=== PATIENT | female | born 1940 | race Caucasian/White ===

== ENCOUNTER → 2016-11-22 | Outpatient (CLI) | payer OTHER | END | disposition home or self-care (01) | DX: M25.552 Pain in left hip (principal); M25.652 Stiffness of left hip, not elsewhere classified; R26.2 Difficulty in walking, not elsewhere classified; M62.81 Muscle weakness (generalized) | CPT/HCPCS: 97110 GP; 97150 GO; 97161 GP; 97165 GO; G8978 GP; G8979 GP; G8980 GP; G8984 GO; G8985 GO; G8986 GO ==

== ENCOUNTER 2016-12-13 08:27 | Inpatient (IN) | payer OTHER ==
[~2016-12-13] VITALS: Ht 162.6 cm; Wt 81.5 kg
[~2016-12-13 08:27] MED LIST: ALEVE220 MG PO; ASPIRIN81 M2 PO; B-COMPLEX-VITA1 EACH PO; BIOTIN1 MG PO; CINNAMON500 MG PO; COQ-10100 MG PO; FERROUS SULFAT325 MG PO; GLUCOSAMINE1000 MG PO; LEVOXYL88 MCG PO; MAGNESIUM400 M1 PO; MULTIPLE VITAM1 EAC4 PO; NATURAL LUTEIN20 MG PO; OMEGA 3 500 SO1 EACH PO; POTASSIUM-9999 MG PO; RED YEAST RICE600 MG PO; SELENIUM200 MC3 PO; VITAMIN A A1 CAPSULE PO; VITAMIN C500 M1 PO; VITAMIN D-3 401 EACH PO; VITAMIN E400 UNIT PO; ZINC50 M1 PO
[2016-12-13 09:32] VITALS: BP 144/66
[2016-12-13 14:27] LABS: HEMATOCRIT 33.7 % (36.0-46.0); MCH 32.7 PG (29.0-34.0); MCHC 33.2 G/DL (30.0-36.0); MCV 98.5 FL (83-99); MEAN PLAT.VOLUME 11.2 uM^3 (9.5-12.4); PLATELET COUNT 183 K/uL (156-360); RBC DIS.WIDTH-CV 13.4 % (11.8-14.6); RBC DIS.WIDTH-SD 49.3 % (39-53); RED BLOOD COUNT 3.42 M/uL (3.80-5.20); WHITE BLOOD COUNT 11.6 K/uL (4.1-10.2)
[2016-12-13 16:36] VITALS: BP 190/92
[2016-12-13 21:41] VITALS: BP 176/74
[2016-12-14 00:46] VITALS: BP 161/67
[2016-12-14 03:41] VITALS: BP 154/70
[2016-12-14 06:48] LABS: ANION GAP 7 MEQ/L (2-14); CHLORIDE 102 MEQ/L (99-109); GFR ESTIMATE (CALCULATED) > 59 mL/min/; GLUCOSE 133 mg/dL (70-99); POTASSIUM 4.2 MEQ/L (3.7-5.4); SAMPLE HEMOLYSIS CHECK 0; SAMPLE ICTERIC CHECK 0; SAMPLE LIPEMIA CHECK 0; SODIUM 137 MEQ/L (136-147); UREA NITROGEN (BUN) 10 mg/dL (9-23)
[2016-12-14 07:49] VITALS: BP 136/63
[2016-12-14 14:06] LABS: HEMATOCRIT 32.5 % (36.0-46.0); MCV 98.8 FL (83-99)
[2016-12-14 15:42] VITALS: BP 117/58
[2016-12-15 00:06] VITALS: BP 126/58
[2016-12-15 08:01] VITALS: BP 119/58
[2016-12-15 16:08] VITALS: BP 108/55
[2016-12-16 00:05] VITALS: BP 137/65
[2016-12-16 07:04] VITALS: BP 115/55
[2016-12-16] MEDS ORDERED: SENNA PLUS TAB1 EACH PO (09:07)
[2016-12-16] MEDS ORDERED: HYDROCODON-ACE1 EAC7 PO (09:09)
[2016-12-16] MEDS ORDERED: LOVENOX40 MG/0.4 SC (09:09)
== END 2016-12-16 14:12 | DRG 470 ==
LOC: 2SOUTH 08:27 → 3EAST 08:27 → 2SOUTH 15:24 → 3EAST 12-16 14:12
PROVIDERS: Orthopaedic Surgery
PROC: 0SRB0J9 Replacement of Left Hip Joint with Synthetic Substitute, Cemented, Open Approach (ICD-10-PCS; principal; 2016-12-13)
DX: M16.12 Unilateral primary osteoarthritis, left hip (principal); I10 Essential (primary) hypertension; E07.9 Disorder of thyroid, unspecified; Z82.49 Family history of ischemic heart disease and other diseases of the circulatory system; Z88.1 Allergy status to other antibiotic agents; R91.8 Other nonspecific abnormal finding of lung field
CPT/HCPCS: 71010; 71020; 73501; 73502; 80048; 85014; 85018; 85027; 97530 GP; C1713; J0690; J1170; J1650; J2250; J2405; J7030; J7050

== ENCOUNTER → 2017-11-28 | Outpatient (CLI) | payer OTHER ==
[~2017-11-28] MED LIST changes: +HYDROCODON-ACE1 EAC7 PO; +LOVENOX40 MG/0.4 SC; +SENNA PLUS TAB1 EACH PO
== END | disposition home or self-care (01) ==
DX: Z01.818 Encounter for other preprocedural examination (principal); R26.2 Difficulty in walking, not elsewhere classified; R29.3 Abnormal posture; R26.9 Unspecified abnormalities of gait and mobility; M25.561 Pain in right knee; M79.604 Pain in right leg; M25.661 Stiffness of right knee, not elsewhere classified; Z74.1 Need for assistance with personal care; M17.11 Unilateral primary osteoarthritis, right knee
CPT/HCPCS: 97161 GP; 97165 GO; 97530 GP; 97535 GO; G8978 GP; G8979 GP; G8980 GP; G8984 GO; G8985 GO; G8986 GO

== ENCOUNTER 2017-12-24 21:53 | Inpatient (IN) | payer OTHER ==
[~2017-12-24] VITALS: Ht 162.6 cm; Wt 73.0 kg
[~2017-12-24 21:53] MED LIST changes: +ASPIR 8181 M1 PO; +LOTENSIN5 MG PO; +STOOL SOFTENER100 MG PO
[2017-12-25 11:24] VITALS: BP 127/68
[2017-12-25 16:03] LABS: HEMATOCRIT 35.1 % (36.0-46.0); HEMOGLOBIN 11.8 G/DL (11.9-15.5); MCH 32.4 PG (29.0-34.0); MCHC 33.6 G/DL (30.0-36.0); MCV 96.4 FL (83-99); PLATELET COUNT 268 K/uL (156-360); RBC DIS.WIDTH-CV 13.1 % (11.8-14.6); RBC DIS.WIDTH-SD 46.6 % (39-53); RED BLOOD COUNT 3.64 M/uL (3.80-5.20); WHITE BLOOD COUNT 6.7 K/uL (4.1-10.2)
[2017-12-25 19:16] VITALS: BP 134/61
[2017-12-26 03:57] VITALS: BP 181/70
[2017-12-26 05:40] VITALS: BP 176/76
[2017-12-26 05:52] LABS: HEMATOCRIT 34.1 % (36.0-46.0); HEMOGLOBIN 11.5 G/DL (11.9-15.5); MCV 96.3 FL (83-99)
[2017-12-26 06:15] LABS: CHLORIDE 102 MEQ/L (99-109); CREATININE 0.7 MG/DL (0.6-1.3); GFR ESTIMATE (CALCULATED) > 59 mL/min/; GLUCOSE 141 mg/dL (70-99); POTASSIUM 4.3 MEQ/L (3.7-5.4); SODIUM 137 MEQ/L (136-147); UREA NITROGEN (BUN) 13 mg/dL (9-23)
[2017-12-26 07:47] VITALS: BP 117/54
[2017-12-26 11:33] VITALS: BP 150/69
[2017-12-26 15:33] VITALS: BP 162/70
[2017-12-26 20:13] VITALS: BP 129/60
[2017-12-27 00:15] VITALS: BP 161/71
[2017-12-27 04:52] VITALS: BP 124/73
[2017-12-27 07:32] LABS: HEMATOCRIT 33.1 % (36.0-46.0); HEMOGLOBIN 10.9 G/DL (11.9-15.5); MCV 98.2 FL (83-99)
[2017-12-27 08:35] VITALS: BP 131/58
[2017-12-27 12:13] VITALS: BP 107/47
[2017-12-27 15:54] VITALS: BP 117/52
[2017-12-27 20:17] VITALS: BP 113/56
[2017-12-28 00:07] VITALS: BP 130/63
[2017-12-28 04:17] VITALS: BP 141/58
[2017-12-28 07:45] VITALS: BP 107/53
[2017-12-28] MEDS ORDERED: LOVENOX40 MG/0.4 SC (08:30)
[2017-12-28] MEDS ORDERED: CELECOXIB200 MG PO (08:30)
[2017-12-28] MEDS ORDERED: OXYCODONE HCL5 MG PO (08:30)
== END 2017-12-28 13:29 | DRG 470 ==
LOC: ENRESERV 21:53 → 2SOUTH 12-25 10:37 → 3WEST 12-25 10:37 → 2SOUTH 12-25 12:15 → 3WEST 12-25 19:12
PROVIDERS: Orthopaedic Surgery
PROC: 3E0T3BZ Introduction of Anesthetic Agent into Peripheral Nerves and Plexi, Percutaneous Approach (ICD-10-PCS; principal; 2017-12-25)
PROC: 0SRC0J9 Replacement of Right Knee Joint with Synthetic Substitute, Cemented, Open Approach (ICD-10-PCS; principal; 2017-12-25)
DX: M17.11 Unilateral primary osteoarthritis, right knee (principal); I10 Essential (primary) hypertension; E03.9 Hypothyroidism, unspecified; M21.40 Flat foot [pes planus] (acquired), unspecified foot; Z96.642 Presence of left artificial hip joint; Q66.6 Other congenital valgus deformities of feet; Z79.82 Long term (current) use of aspirin; Z88.2 Allergy status to sulfonamides; Z88.1 Allergy status to other antibiotic agents; Z87.891 Personal history of nicotine dependence; Z86.73 Personal history of transient ischemic attack (TIA), and cerebral infarction without residual deficits
CPT/HCPCS: 71045; 73560; 80048; 85014; 85018; 85027; 97530 GO; C1713; J0131; J0360; J0690; J1100; J1170; J1650; J2250; J2405; J3010; J7030; J7050